=== PATIENT | female | born 1985 | race African-American/Black ===

== ENCOUNTER 2017-03-24 09:12 | Emergency (ER) | payer OTHER ==
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
[~2017-03-24 09:12] MED LIST: BACTRIM DS TABL1 TA2 PO; BACTROBAN22 GM TP; NUVARING V1 VAG.RING VG; VALTREX500 MG
== END 2017-03-24 09:40 | disposition home or self-care (01) ==
LOC: SED 09:12
DX: S16.1XXA Strain of muscle, fascia and tendon at neck level, initial encounter (principal); S39.012A Strain of muscle, fascia and tendon of lower back, initial encounter; V43.52XA Car driver injured in collision with other type car in traffic accident, initial encounter
CPT/HCPCS: 72040; 72100; 99284